=== PATIENT | female | born 1975 | race Caucasian/White ===

== ENCOUNTER → 2018-08-05 | Outpatient (CLI) | payer OTHER ==
[2018-08-05 15:00] LABS: Anion Gap 10 mmol/L; Blood Urea Nitrogen 14 mg/dL (7-17); Carbon Dioxide 25 mmol/L (22-30); Chloride 102 mmol/L (98-107); Glucose 194 mg/dL (74-99); Potassium 4.4 mmol/L (3.5-5.1); Sodium 137 mmol/L (137-145)
[2018-08-05 15:03] LABS: Basophils # (A) 0.1 k/uL (0-0.2); Basophils % (A) 1 %; Eosinophils # (A) 0.4 k/uL (0-0.7); Eosinophils % (A) 4 %; HCT 37.9 % (34.0-46.0); HGB 11.4 gm/dL (11.4-16.0); Lymphocytes # (A) 3.1 k/uL (1.0-4.8); Lymphocytes % (A) 33 %; MCH 23.6 pg (25.0-35.0); MCV 78.8 fL (80.0-100.0); Mean Platelet Volume 6.2; Monocytes # (A) 0.3 k/uL (0-1.0); Monocytes % (A) 4 %; Neutrophils # (A) 5.4 k/uL (1.3-7.7); Neutrophils % (A) 57 %; Platelet Count 378 k/uL (150-450); RDW 14.9 % (11.5-15.5); WBC 9.4 k/uL (3.8-10.6)
== END ==
LOC: LABPAT 13:56
PROVIDERS: ATTEND Obstetrics & Gynecology
DX: Z01.812 Encounter for preprocedural laboratory examination (principal); D25.9 Leiomyoma of uterus, unspecified; N93.8 Other specified abnormal uterine and vaginal bleeding; R10.84 Generalized abdominal pain
CPT/HCPCS: 36415; 80051; 82565; 82947; 84520; 85025; 87086

== ENCOUNTER 2018-08-11 05:48 | Inpatient (IN) | payer OTHER ==
[2018-07-30 15:21] VITALS: BMI 43.1
[~2018-08-11 05:48] MED LIST: DEXAMETHASONE SOD PHOSPHATE 10 MG/ML 1 ML VIAL IV ONE; LIDOCAINE 1% 20 ML VIAL (10MG/ML) FOR IV START INTRADERMA PRN; MIDAZOLAM 2 MG/2 ML VIAL IV PRN; ceFAZolin IN SWFI 2 GM/20 ML SYRINGE IVP ONE; fentaNYL (PF) 50 MCG/ML 2 ML AMP IV PRN
[2018-08-11 06:32] LABS: Glucose,Whole Blood 129 mg/dL (75-99)
[2018-08-11] MEDS: LACTATED RINGERS 1,000 ML IV SCH ×3 (06:34→20:06)
[2018-08-11] MEDS ORDERED: ONDANSETRON 4 MG/2 ML VIAL IVP ONE (06:34)
[2018-08-11] MEDS ORDERED: fentaNYL (PF) 50 MCG/ML 2 ML AMP IV ONE (06:52)
[2018-08-11] MEDS ORDERED: LIDOCAINE 1% INJ 10MG/ML (20 ML MDV) ONE (07:22)
[2018-08-11] MEDS ORDERED: diphenhydrAMINE 50 MG/ML 1 ML VIAL ONE (07:22)
[2018-08-11] MEDS ORDERED: NEOSTIGMINE 1 MG/ML 10 ML VIAL ONE (07:22)
[2018-08-11] MEDS ORDERED: ROCURONIUM BROMIDE 10 MG/ML 10 ML VIAL IV ONE (07:22)
[2018-08-11] MEDS ORDERED: GLYCOPYRROLATE 0.2 MG/ML 2 ML VIAL ONE (07:22)
[2018-08-11] MEDS ORDERED: SUCCINYLCHOLINE CHLORIDE 100 MG/5 ML SYR IV ONE (07:22)
[2018-08-11] MEDS ORDERED: PHENYLEPHRINE-0.9% NACL SYG 1 MG/10 ML SYRINGE ONE (07:22)
[2018-08-11] MEDS ORDERED: PROPOFOL 10 MG/ML 20 ML VIAL IV ONE (07:22)
[2018-08-11] MEDS ORDERED: MIDAZOLAM 2 MG/2 ML VIAL ONE (07:22)
[2018-08-11] MEDS ORDERED: fentaNYL (PF) 50 MCG/ML 2 ML AMP ONE (07:22)
[2018-08-11] MEDS ORDERED: ZOLPIDEM 5 MG TAB PO PRN (07:31)
[2018-08-11] MEDS ORDERED: ONDANSETRON 4 MG/2 ML VIAL IVP PRN (07:31)
[2018-08-11] MEDS ORDERED: Acetaminophen-Codeine 300-30mg TAB PO PRN (07:31)
[2018-08-11] MEDS ORDERED: METOCLOPRAMIDE 5 MG/ML 2 ML VIAL IVP PRN (07:31)
[2018-08-11] MEDS ORDERED: LACTATED RINGERS 1,000 ML IV ONE ×2 (08:25→10:19)
[2018-08-11] MEDS: KETOROLAC 30 MG/ML 1 ML VIAL IVP PRN ×3 (09:51→23:21)
--- NOTE | 2018-08-11 10:04 | P.OP ---
Date of Procedure: 08/11/18 Preoperative Diagnosis: #1. Symptomatic uterine fibroids #2. Pelvic pain Postoperative Diagnosis: Same plus #3. Large right adnexal solid mass with adhesions Procedure(s) Performed: 1. Exploratory laparotomy #2. Right salpingo-oophorectomy #3. Adhesio lysis #4. Total abdominal hysterectomy #5. Left salpingectomy Anesthesia: GETA Surgeon: Jignesh Gonsales Cleaner And Polisher #1: Makayla Vasquez Estimated Blood Loss (ml): 400 IV fluids (ml): 1,650 Urine output (ml): 300 Pathology: other (Right tube and ovary, uterus with cervix, left fallopian tube) Operative Findings: Preoperatively, the patient was thought to have 2 large uterine fibroids at the top of the uterus with an otherwise normal-appearing uterus by ultrasound. Intraoperatively, a large mass was encountered which was initially thought to include uterus but, upon further inspection was noted to be separate from the uterus with the uterus inferior to the mass. Once excised, it was clear that the mass represented the entire right tubo-ovarian complex and was sent for frozen section. Frozen section diagnosis suggested the possibility of pleomorphic leiomyoma versus possible sarcoma pending final pathologic stains. The uterus was otherwise normal with no evidence of fibroids though the bladder was densely adherent to the lower uterine segment from her previous section. There was evidence of endometriosis on the left ovary which causes the fallopian tube to be somewhat adherent to it was removed without difficulty. Clear urine was noted throughout the entire case including at the end. Description of Procedure: The patient was prepped and draped in usual fashion after general endotracheal anesthesia was admission by the anesthesiologist. A vertical midline incision was made from just below the umbilicus to just above the pubic symphysis and extended into the abdominal cavity without difficulty. Pelvic washings were taken and ultimately sent for pathological diagnoses. The mass was encountered within the incision and was delivered up and through the incision. There were multiple areas of what appeared to be peritoneal adhesions which were clamped with Yann [place] clamps, cut, and suture ligated with transfixion stitches of 0 Vicryl. The blood supply was ultimately identified, doubly clamped, cut, and suture-ligated with a transfixion stitch of 0 Vicryl followed by a free tie of 0 Vicryl. Once the mass had been excised, it was sent for frozen section diagnoses with the findings as noted above. It was at this time clearly identify that this was the right tubo-ovarian complex. The dissection was clearly carried out far away from the pelvic sidewall and away from the ureter. A Ayden O'García self-retaining retractor was placed and the bowel was packed from the wound. The uterus was then grasped on both sides with Tish clamps. The mass itself appeared to have been removed at the cornu on the right side. The round ligament on each side was identified, clamped with Ingrid-[place] clamps, cut, and suture-ligated with a stitch of 0 Vicryl. The bladder peritoneum was developed across the entire lower uterine segment. On the left side, window was made in the posterior leaf of the peritoneum to isolate the tubo-ovarian pedicle which was clamped with a Ingrid-[place] clamp, cut, and suture-ligated with a transfixion stitch of 0 Vicryl. The uterine vasculature was relatively skeletonized bilaterally and clamped with curved Ingrid- [place] clamps. Each was cut and suture-ligated with a transfixion stitch of 0 Vicryl. The densely adherent bladder could not be dissected bluntly and therefore was dissected sharply along the lower uterine segment at which time it became significantly free and was easily swept distally. Serial bites were taken with straight Ingrid-[place] clamps down the cardinal ligament towards the uterosacral ligament on each side. Each was cut and suture-ligated with a transfixion stitch of 0 Vicryl. At the level of the uterosacral ligaments, curved Ingrid-[place] clamps were placed across the uterosacral ligaments below the level of the cervix to enter the vagina. The specimen was then amputated from the patient and set aside for pathological diagnoses. Each clamp was suture-ligated with a transfixion stitch of 0 Vicryl. The intervening open vaginal cuff was closed with a running locking stitch of 0 Vicryl from margin to margin. Any small points of bleeding were made hemostatic with the Bovie. The decision was made to remove the left ovary in place despite the possibility of malignancy as there was also an equal possibility of a benign diagnosis at which time she would have been surgically menopausal. The fallopian tube was dissected both sharply and bluntly off of the ovary and ultimately the remaining pedicle clamped with a curved Ingrid-[place] clamp allowing the specimen removed from the patient and sent for pathological diagnoses along with the uterus. The pedicle was suture-ligated with a transfixion stitch of 0 Vicryl. Examination ovary demonstrated adequate blood flow and no evidence of bleeding from any of the dissection sites. Reexamination of the pelvis demonstrated similar findings. Irrigation was carried out and the pelvis again reinspected. No ongoing points of bleeding were noted. The instrumentation was then all removed and the packing removed. The parietal peritoneum was loosely reapproximated. There is no evidence of any pelvic adenopathy nor any extension from the mass with evidence of seeding. The fascia was closed with 2 running stitches of 0 Vicryl proceeding from the superior and inferior points to the midpoint. The subcutaneous tissues were irrigated, made hemostatic with the Bovie, and reapproximated with a running stitch of 30 plain catgut. The skin was reapproximated with a running subcuticular stitch of 4-0 Vicryl from margin to margin followed by full length half-inch Steri-Strips placed with Mastisol. Estimated blood loss for the case was approximately 400 mL. There were no complications. All sponge, instrument, and needle counts were correct. Clear urine was noted both at the beginning of the case and the end of the case. The patient tolerated the procedure well and proceeded to the recovery room in stable condition.
[2018-08-11] MEDS ORDERED: MORPHINE SULFATE 2 MG/ML SYRINGE IVP PRN (10:13)
[2018-08-11] MEDS ORDERED: NALBUPHINE 10 MG/ML (1 ML AMP) IV PRN (10:13)
[2018-08-11] MEDS ORDERED: NALOXONE 0.4 MG/ML 1 ML VIAL IV PRN (10:13)
[2018-08-11] MEDS: diphenhydrAMINE 50 MG/ML 1 ML VIAL IVP PRN ×2 (17:51→23:22)
[2018-08-11] MEDS: SENNOSIDES-DOCUSATE SODIUM 1 EACH TAB PO SCH ×2 (20:07→23:46)
[2018-08-12] MEDS: LACTATED RINGERS 1,000 ML IV SCH (03:30)
[2018-08-12 06:06] LABS: Basophils % (A) 0 %; Eosinophils # (A) 0.2 k/uL (0-0.7); Eosinophils % (A) 2 %; HCT 30.4 % (34.0-46.0); Hypochromasia Slight; Lymphocytes # (A) 2.8 k/uL (1.0-4.8); Lymphocytes % (A) 29 %; MCH 25.9 pg (25.0-35.0); MCHC 32.8 g/dL (31.0-37.0); Mean Platelet Volume 6.4; Monocytes # (A) 0.4 k/uL (0-1.0); Monocytes % (A) 4 %; Neutrophils # (A) 5.9 k/uL (1.3-7.7); Neutrophils % (A) 63 %; Platelet Count 272 k/uL (150-450); RBC 3.85 m/uL (3.80-5.40); RDW 14.7 % (11.5-15.5); WBC 9.4 k/uL (3.8-10.6)
--- NOTE | 2018-08-12 07:50 | P.PN ---
Subjective Progress Note Date: 08/12/18 Principal diagnosis: Large irregular right pelvic mass The patient reports that pain is currently reasonably well controlled. She has passed a small amount of flatus this morning though she does not feel hungry yet. She has been up and ambulating in the halls and denies any signs or symptoms of orthostasis. Objective - Vital Signs Vital signs: Vital Signs Temp 97.9 F 08/11/18 23:38 Pulse 74 08/11/18 23:38 Resp 14 08/12/18 06:00 BP 129/75 08/11/18 23:38 Pulse Ox 99 08/11/18 23:38 Intake & Output 08/11/18 08/12/18 08/12/18 18:59 06:59 18:59 Intake Total 1850 Output Total 1550 900 Balance 300 -900 Intake: IV 1850 Output: Urine 1150 900 Uretheral ([place]) 400 Estimated Blood Loss 400 Other: Voiding Method Indwelling Catheter # Voids 1 - Exam In general, this is a well-developed, moderately obese white female in no acute distress. Her abdomen is nondistended, soft, appropriately tender, and without masses. The incision is clean, dry, and intact. Her extremities are without any cyanosis, clubbing, or edema and are nontender to palpation bilaterally. - Labs CBC & Chem 7: 08/12/18 05:28 Labs: Abnormal Lab Results - Last 24 Hours (Table) 08/12/18 Range/Units 05:28 Hgb 10.0 L (11.4-16.0) gm/dL Hct 30.4 L (34.0-46.0) % MCV 79.0 L (80.0-100.0) fL Assessment and Plan (1) Pelvic pain Current Visit: Yes Status: Acute Code(s): R10.2 - PELVIC AND PERINEAL PAIN SNOMED Code(s): 20037983 (2) Pelvic mass Current Visit: Yes Status: Acute Code(s): R19.00 - INTRA-ABD AND PELVIC SWELLING, MASS AND LUMP, UNSP SITE SNOMED Code(s): 90464193 Plan: Continue routine postoperative care. I have discussed the findings of the surgery in detail with the patient and await final pathology for further di sposition. I will advance her diet to regular at lunch time and have strongly encouraged her to ambulate in the halls routinely. Additionally and abdominal binder has been ordered for her comfort. Possible discharge home tomorrow pending no complications.
[2018-08-12] MEDS: IBUPROFEN 600 MG TAB PO PRN ×3 (08:26→20:26)
--- NOTE | 2018-08-12 10:19 | P.PN ---
Progress Note - Text 08/12 709am 43-year-old female status post total abdominal hysterectomy by Dr. Gonsales. Postop day 1 patient has no pain, no complains of nausea vomiting or pruritus.
[2018-08-12] MEDS: Acetaminophen-Codeine 300-30mg TAB PO PRN ×2 (11:44→16:34)
[2018-08-12] MEDS: SENNOSIDES-DOCUSATE SODIUM 1 EACH TAB PO SCH ×2 (11:44→20:29)
[2018-08-12] MEDS: SIMETHICONE 80 MG CHEWABLE PO PRN ×2 (12:52→19:10)
[2018-08-13] MEDS: LACTATED RINGERS 1,000 ML IV SCH (00:21)
[2018-08-13] MEDS: SIMETHICONE 80 MG CHEWABLE PO PRN (01:10)
[2018-08-13] MEDS: Acetaminophen-Codeine 300-30mg TAB PO PRN ×2 (01:10→09:52)
[2018-08-13] MEDS: IBUPROFEN 600 MG TAB PO PRN (06:35)
[2018-08-13] MEDS: SENNOSIDES-DOCUSATE SODIUM 1 EACH TAB PO SCH (08:11)
[2018-08-13 08:52] VITALS: BP 139/96; PULSE 81; RESP 18; TEMP 97.8
--- NOTE | 2018-08-13 09:01 | P.DS ---
Providers Date of admission: 08/11/18 05:48 Expected date of discharge: 08/13/18 Attending physician: Jignesh Gonsales Primary care physician: Deja Bo - Discharge Diagnosis(es) (1) Pelvic pain Current Visit: Yes Status: Acute (2) Pelvic mass Current Visit: Yes Status: Acute Hospital Course: The patient is a 43-year-old multiparous woman who presented to the office with complaints of increasing pelvic and lower abdominal pain. She through both examination and ultrasound was thought to have a large fibroid uterus. Initial plans to attempt to do it laparoscopically failed for a number of reasons and the decision was made to proceed with an open case. She was taken the operating room where at the time of surgery, the mass was found to be very large, approximately 20-25 cm x 15-20 cm x 15-20 cm and very irregular in nature and arising from the right tubo-ovarian complex. It was removed and sent for frozen section which demonstrated what appeared to be a tumor of muscular origin consistent with either a very mitotically active leiomyoma or a possible leiomyosarcoma pending final pathology. She then underwent total abdominal hysterectomy and left salpingectomy. The left ovary was left in situ as the patient did not desire surgical menopause and, should malignancy be the final diagnosis, further staging would be necessary in either case. Her postoperative course was unremarkable with vital signs being stable and her temperature was afebrile throughout. She was tolerating a regular diet by the afternoon of postoperative day #1 and deemed stable for discharge by the morning of postoperative day #2. She was discharged home to follow-up in the office in 2 weeks' time for an incision check and 6 weeks time routinely. Discharge instructions included calling for any significantly increased bleeding, abdominal pain, GI or urinary concerns, incisional concerns, or anything else that concerned her. She is additionally instructed to have nothing in the vagina for at least 6 weeks time to include intercourse and to abstain from any heavy lifting over the same period of time. She was last instructed to do no driving until off of all pain medications or 2 weeks' time, whichever came first. She understood her instructions and agrees to follow up as noted above. Discharge medications included a prescription for Tylenol No. 3, 1-2 by mouth every 6 hours when necessary pain, #20 dispensed with no refills. She was otherwise to resume all of her normal home medications. Discharge hemoglobin and hematocrit were 10.0 and 30.4 respectively Procedures: #1. Exploratory laparotomy #2. Right salpingo-oophorectomy #3. Total ab dominal hysterectomy #4. Left salpingectomy #5. Intraoperative frozen section consultation Patient Condition at Discharge: Stable Plan - Discharge Summary Discharge Rx Participant: Yes New Discharge Prescriptions: No Action Levothyroxine Sodium [Synthroid] 200 mcg PO HS Ibuprofen [Motrin] 400 mg PO Q6HR PRN PRN Reason: Pain Acetaminophen Tab [Tylenol Tab] 500 - 1,000 mg PO Q6HR PRN PRN Reason: Pain Lisinopril 20 mg PO QAM Discharge Medication List Acetaminophen Tab [Tylenol Tab] 500 - 1,000 mg PO Q6HR PRN 08/01/18 [History] Ibuprofen [Motrin] 400 mg PO Q6HR PRN 08/01/18 [History] Levothyroxine Sodium [Synthroid] 200 mcg PO HS 08/01/18 [History] Lisinopril 20 mg PO QAM 08/01/18 [History] Follow up Appointment(s)/Referral(s): Jignesh Gonsales MD [STAFF PHYSICIAN] - 2 Weeks Discharge Disposition: HOME SELF-CARE
--- NOTE | 2018-08-22 06:15 | CDI ---
Documentation Clarification Form Date:08/22/18 From: Victorino Holder Phone: call to [phone] Admit Date: 08/11/2018 5:48:00 AM Patient Name: Rita Wilder Visit Number: [id number] Discharge Date: 08/13/2018 11:10:00 AM ATTENTION: The Clinical Documentation Specialists (CDI) and [facility] Coding Staff appreciate your assistance in clarifying documentation. Please respond to the clarification below the line at the bottom and electronically sign. The CDI & [facility] Coding staff will review the response and follow-up if needed. Please note: Queries are made part of the Legal Health Record. If you have any questions, please contact the author of this message via ITS. Dr. 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 Documentation states: Discharge summary states Leiomyoma, path results are pending. Patient history/risk factors: uterine fibroids ,Large adnexal solid mass. Treatment: patient underwent surgery WAYNE,oophorectomy. In your professional opinion, do you agree with the pathology report specifying Leiomyosarcoma ? Yes No Other (please specify) Unable to determine Yes MTDD
== END 2018-08-13 11:10 | disposition home or self-care (01) | DRG 738 ==
LOC: 2ORMAIN 05:48 → 4FBP 09:46
PROVIDERS: ADMIT Obstetrics & Gynecology; ATTEND Obstetrics & Gynecology
PROC: 0DNW0ZZ Release Peritoneum, Open Approach (ICD-10-PCS; principal; 2018-08-11 07:30)
PROC: 0UTC0ZZ Resection of Cervix, Open Approach (ICD-10-PCS; principal; 2018-08-11 07:30)
PROC: 0UT70ZZ Resection of Bilateral Fallopian Tubes, Open Approach (ICD-10-PCS; principal; 2018-08-11 07:30)
PROC: 0UT90ZZ Resection of Uterus, Open Approach (ICD-10-PCS; principal; 2018-08-11 07:30)
PROC: 0UB00ZZ Excision of Right Ovary, Open Approach (ICD-10-PCS; principal; 2018-08-11 07:30)
DX: C57.01 Malignant neoplasm of right fallopian tube (principal); I10 Essential (primary) hypertension; N83.11 Corpus luteum cyst of right ovary; N72 Inflammatory disease of cervix uteri; N80.2 Endometriosis of fallopian tube; N80.0 Endometriosis of uterus; E03.9 Hypothyroidism, unspecified; Z90.89 Acquired absence of other organs; Z98.891 History of uterine scar from previous surgery; Z79.890 Hormone replacement therapy; Z79.899 Other long term (current) drug therapy; Z91.041 Radiographic dye allergy status; Z88.8 Allergy status to other drugs, medicaments and biological substances; Z88.2 Allergy status to sulfonamides; Z82.49 Family history of ischemic heart disease and other diseases of the circulatory system; Z83.49 Family history of other endocrine, nutritional and metabolic diseases
CPT/HCPCS: 81025; 85025; 86850; 86900; 86901; 88108; 88305; 88307; 88309; 88331; 88341; 88342

== ENCOUNTER → 2018-10-01 | Outpatient (CLI) | payer OTHER ==
--- NOTE | 2018-10-01 10:10 | MM ---
Reason for exam: screening (asymptomatic). Baseline mammogram. History: Patient is postmenopausal and history of other cancer. Family history of breast cancer in aunt. Taking other hormone. Physical Findings: Nurse did not find any significant physical abnormalities on exam. MG Screening Mammo w CAD Bilateral CC and MLO view(s) were taken. There are scattered fibroglandular densities. There is a 1.4cm group of left retroareolar calcifications. No suspicious abnormality on the right. These results were verbally communicated with the patient and result sheet given to the patient on 10/01/18. ASSESSMENT: Incomplete: need additional imaging evaluation, BI-RAD 0 RECOMMENDATION: Special view mammogram of the left breast.
--- NOTE | 2018-10-01 10:36 | MM ---
Reason for exam: additional evaluation requested from abnormal screening. History: Patient is postmenopausal and history of other cancer. Family history of breast cancer in aunt. Taking other hormone. Physical Findings: Breast exam preformed at baseline screening. MG Work Up Mamm w CAD LT CC with magnification, LM with magnification, and LM view(s) were taken of the right breast. There are scattered fibroglandular densities. There is a 1.3cm group of lower outer quadrant left calcifications at anterior depth. These are pleomorphic and biopsy is recommended. These results were verbally communicated with the patient and result sheet given to the patient on 10/01/18. ASSESSMENT: Suspicious, BI-RAD 4 RECOMMENDATION: Stereotactic core biopsy of the left breast. Called Dr. Gonsales with mammographic findings and has scheduled an appointment for the patient for 10/01/18 at 1:[address] Montanez. Biopsy scheduled for 10/24/18 at 10:20. PRELIMINARY REPORT CALLED AND FAXED TO DR. MONTANEZ ON 10/01/18.
== END | disposition home or self-care (01) ==
LOC: RADMAMWWP 08:00
PROVIDERS: ATTEND Obstetrics & Gynecology
DX: Z12.31 Encounter for screening mammogram for malignant neoplasm of breast (principal); Z85.89 Personal history of malignant neoplasm of other organs and systems
CPT/HCPCS: 77065; 77067

== ENCOUNTER → 2018-11-25 | Day surgery (SDC) | payer OTHER ==
[2018-11-25 09:44] VITALS: RESP 18; BMI 40.4
[2018-11-25 12:57] VITALS: BP 125/88; PULSE 80; TEMP 98
--- NOTE | 2018-11-25 13:11 | MM ---
EXAMINATION TYPE: MG stereo VAD BX LT DATE OF EXAM: 11/25/2018 COMPARISON: Diagnostic mammogram dated 10/01/2018 CLINICAL HISTORY: Indeterminate left breast calcifications for which dedicated guided biopsy was anat mmended. TECHNIQUE: Stereotactic guided core biopsy of left breast. FINDINGS: The procedure of stereotactic guided core biopsy was explained to the patient. Benefits, a lternatives, and risks were discussed. An informed consent was then obtained. The safest pathway for biopsy was chosen to approximately 1.3 cm group of calcifications in the lower outer quadrant of the left breast at anterior depth. Safest pathway was lateral to medial approach. Coordinates were calculated. Subsequently 7 cc of lidocaine without epinephrine was utilized to anest hetize the skin and deeper subcutaneous soft tissues. The needle was advanced to the appropriate dept h. Prefire images were obtained ensuring appropriate location. Postfire injection of 5 cc of lidocain e with epinephrine was utilized to anesthetize the site of biopsy. Postfire images were obtained to e nsure no movement of the calcifications after instillation of additional anesthetic. A vacuum assiste d biopsy gun was used to obtain 8 core samples. The patient tolerated the procedure well without any immediate complication. The patient was kept in the radiology department for short stay after the procedure and then discharged home in stable condi tion. Targeted calcifications are identified in specimen mammogram. Post biopsy mammogram shows the biopsy marker to appear in satisfactory position relative to the targeted area of concern on the pre procedure images without migration. IMPRESSION: SUCCESSFUL, UNCOMPLICATED STEREOTACTIC GUIDED CORE BIOPSY OF A 1.3 CM GROUP OF CALCIFICATIONS IN THE LOWER QUADRANT OF THE LEFT BREAST AT ANTERIOR DEPTH, FULL PATHOLOGY RESULTS TO FOLLOW.
== END ==
LOC: RADMAMWWP 08:50
PROVIDERS: ATTEND Student in an Organized Health Care Education/Training Program
DX: D05.12 Intraductal carcinoma in situ of left breast (principal); R92.1 Mammographic calcification found on diagnostic imaging of breast; N64.89 Other specified disorders of breast; Z91.041 Radiographic dye allergy status; Z91.048 Other nonmedicinal substance allergy status
CPT/HCPCS: 88305; 88342; 88341; 19081; A4648; J2001

== ENCOUNTER 2019-01-19 16:28 | Observation (INO) | payer OTHER ==
[2019-01-19] MEDS ORDERED: SODIUM CHLORIDE 0.9% 1,000 ML IV STA ×2 (17:49)
[2019-01-19] MEDS ORDERED: PANTOPRAZOLE 40 MG/10 ML VIAL IVP STA (17:49)
[2019-01-19] MEDS ORDERED: ONDANSETRON 4 MG/2 ML VIAL IVP STA (17:49)
--- NOTE | 2019-01-19 18:48 | ED ---
General Adult HPI - General Source: patient, RN notes reviewed, old records reviewed Mode of arrival: ambulatory Limitations: no limitations <Maddy Stephenson - Last Filed: 01/19/19 21:24> <Masoud Auguste - Last Filed: 01/19/19 21:45> - General Chief complaint: Nausea/Vomiting/Diarrhea Stated complaint: vomiting/weakness Time Seen by Provider: 01/19/19 17:23 - History of Present Illness Initial comments: 43-year-old female presents today for evaluation for dizziness, as well as dehydration. She reports that she last received chemo last Saturday. She reports onset time she's been having increased nausea and inability to eat anything or drink anything for one week. Patient states that she has some drainage coming out of her nose towards her throat and seems to cause some stomach upset. Patient has had an episode of diarrhea yesterday. Her oncologist is Dr. Booker. 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 She had a hysterectomy. She is undergoing chemo treatments. She also has history of breast cancer at this time. Patient reports she did receive Neulasta shot approximatelly 6 days ago. (Maddy Stephenson) - Related Data Home Medications Medication Instructions Recorded Confirmed Levothyroxine Sodium [Synthroid] 200 mcg PO HS 08/01/18 01/19/19 Lisinopril 20 mg PO QAM 08/01/18 01/19/19 DOCEtaxel [Taxotere] 160 mg IV Q14D 11/12/18 01/19/19 Dexamethasone 4 mg PO WEEKLY 11/12/18 01/19/19 Gemcitabine HCl [Gemzar] 1,900 mg IV Q21D 11/12/18 01/19/19 Prochlorperazine [Compazine] 5 mg PO Q6H PRN 11/12/18 01/19/19 Allergies Allergy/AdvReac Type Severity Reaction Status Date / Time Iodinated Contrast Media Allergy Anaphylaxis Verified 01/19/19 17:20 [Iodinated Contrast- Oral and IV Dye] prednisone Allergy Rash/Hives Verified 01/19/19 17:23 ranitidine [From Zantac] Allergy Anaphylaxis Verified 01/19/19 17:20 Sulfa (Sulfonamide Allergy Anaphylaxis Verified 01/19/19 17:20 Antibiotics) Review of Systems ROS Other: All systems not noted in ROS Statement are negative. <Maddy Stephenson - Last Filed: 01/19/19 21:24> ROS Other: All systems not noted in ROS Statement are negative. <Masoud Auguste - Last Filed: 01/19/19 21:45> ROS Statement: Those systems with pertinent positive or pertinent negative responses have been documented in the HPI. Past Medical History Past Medical History: Cancer, Hypertension, Thyroid Disorder Additional Past Medical History / Comment(s): LEOMYOSARCOMA fallopian tube dx July 2018-current chemo treatments. Stapes implant-for hearing, inner ear, breast ca History of Any Multi-Drug Resistant Organisms: None Reported Past Surgical History: Adenoidectomy, Section, Ear Surgery, Tonsillectomy Additional Past Surgical History / Comment(s): thyrodectomy,prior thyroid surgery Past Anesthesia/Blood Transfusion Reactions: Postoperative Nausea & Vomiting (PONV) Additional Past Anesthesia/Blood Transfusion Reaction / Comment(s): no hx blood transfusion Past Psychological History: No Psychological Hx Reported Smoking Status: Never smoker Past Alcohol Use History: None Reported Past Drug Use History: None Reported - Past Family History Father Family Medical History: Myocardial Infarction (ID) Additional Family Medical History / Comment(s): at age 45 <Maddy Stephenson - Last Filed: 01/19/19 21:24> General Exam Limitations: no limitations General appearance: alert, in no apparent distress Head exam: Present: atraumatic, normocephalic, normal inspection Eye exam: Present: normal appearance, PERRL, EOMI. Absent: scleral icterus, conjunctival injection, periorbital swelling ENT exam: Present: normal exam, mucous membranes moist Neck exam: Present: normal inspection. Absent: tenderness, meningismus, lymphadenopathy Respiratory exam: Present: normal lung sounds bilaterally, other (port in R chest wall). Absent: respiratory distress, wheezes, rales, rhonchi, stridor Cardiovascular Exam: Present: regular rate, normal rhythm, normal heart sounds. Absent: systolic murmur, diastolic murmur, rubs, gallop, clicks GI/Abdominal exam: Present: soft, tenderness (minimal epigastric), normal bowel sounds. Absent: distended, guarding, rebound, rigid Extremities exam: Present: normal inspection, full ROM, normal capillary refill. Absent: tenderness, pedal edema, joint swelling, calf tenderness Back exam: Present: normal inspection Neurological exam: Present: alert, oriented X3, CN II-XII intact Psychiatric exam: Present: normal affect, normal mood Skin exam: Present: warm, dry, intact, normal color. Absent: rash <Maddy Stephenson - Last Filed: 01/19/19 21:24> - General Exam Comments Initial Comments: Generally weak appearing 43-year-old female. (RosmeryrickyMaddy) Course Vital Signs 01/19/19 01/19/19 16:37 19:00 Temperature 98.7 F Pulse Rate 93 93 Respiratory 18 20 Rate Blood Pressure 111/82 114/71 O2 Sat by Pulse 100 99 Oximetry EKG Findings - EKG Comments: EKG Findings:: EKG shows sinus tachycardia cannot really anterior infarct age undetermined. Ventricular rate of 10 2 bpm period. It was 136 ms. Care instructions 86 ms. QT QTc is 354/461 ms. <Maddy Stephenson - Last Filed: 01/19/19 21:24> Medical Decision Making - Lab Data Result diagrams: 01/19/19 19:20 01/19/19 19:20 - Radiology Data Radiology results: report reviewed <Maddy Stephenson - Last Filed: 01/19/19 21:24> - Lab Data Result diagrams: 01/19/19 19:20 01/19/19 19:20 <Masoud Auguste - Last Filed: 01/19/19 21:45> - Medical Decision Making 43-year-old female with a history of leiomyosarcoma of the fallopian tube, as well as breast cancer. She is on chemotherapy and last treatment was on Saturday. She did receive Neulasta injection. She's had persistent nausea and vomiting since that time. She landed some nasal congestion settling in down her throat into her stomach. She had no vomiting in ER pain. She disappears significant only dehydrated. Lab work was reviewed. Evidence of leukocytosis of 45,000. She is afebrile at this time. I did obtain blood cultures. Chest x-ray was negative for any acute process. KUB is normal. Patient's case discussed with Dr. Auguste. Patient will be admitted for dehydration. (Maddy Stephenson) I spoke with Dr. Ashley Buenrostro and he was not concerned about the 45,000 white count because he believes it was secondary to Neupogen (Masoud Auguste) - Lab Data Lab Results 01/19/19 01/19/19 01/19/19 Range/Units 19:20 19:20 19:20 WBC 43.8 H (3.8-10.6) k/uL RBC 3.55 L (3.80-5.40) m/uL Hgb 10.0 L (11.4-16.0) gm/dL Hct 29.3 L (34.0-46.0) % MCV 82.6 (80.0-100.0) fL MCH 28.2 (25.0-35.0) pg MCHC 34.2 (31.0-37.0) g/dL RDW 21.9 H (11.5-15.5) % Plt Count 109 L D (150-450) k/uL Neutrophils % (Manual) 72 % Band Neutrophils % 15 % Lymphocytes % (Manual) 9 % Monocytes % (Manual) 1 % Metamyelocytes % 4 % Myelocytes % 1 % Neutrophils # (Manual) 38.10 H (1.3-7.7) k/uL Lymphocytes # (Manual) 3.94 (1.0-4.8) k/uL Monocytes # (Manual) 0.44 (0-1.0) k/uL Metamyelocytes # (Man) 1.75 H (0) k/uL Myelocytes # (Manual) 0.44 H (0) k/uL Nucleated RBCs 4 H (0-0) /100 WBC Manual Slide Review Performed Polychromasia Present Poikilocytosis (manual Present Anisocytosis Moderate Microcytosis Slight Sodium 136 L (137-145) mmol/L Potassium 3.5 (3.5-5.1) mmol/L Chloride 104 (98-107) mmol/L Carbon Dioxide 19 L (22-30) mmol/L Anion Gap 13 mmol/L BUN 10 (7-17) mg/dL Creatinine 0.99 (0.52-1.04) mg/dL Est GFR (CKD-EPI)AfAm 80 (>60 ml/min/1.73 sqM) Est GFR (CKD-EPI)NonAf 70 (>60 ml/min/1.73 sqM) Glucose 132 H (74-99) mg/dL Plasma Lactic Acid Bry 1.4 (0.7-2.0) mmol/L Calcium 9.3 (8.4-10.2) mg/dL Total Bilirubin 0.8 (0.2-1.3) mg/dL AST 51 H (14-36) U/L ALT 73 H (9-52) U/L Alkaline Phosphatase 151 H (38-126) U/L Total Protein 6.2 L (6.3-8.2) g/dL Albumin 3.6 (3.5-5.0) g/dL Amylase 37 (30-110) U/L Lipase 43 (23-300) U/L - Radiology Data Normal chest x-ray. KUB is normal. (Maddy Stephenson) Disposition Is patient prescribed a controlled substance at d/c from ED?: No Time of Disposition: 21:25 <Maddy Stephenson - Last Filed: 01/19/19 21:24> <Masoud Auguste - Last Filed: 01/19/19 21:45> Clinical Impression: Dehydration, Nausea & vomiting, Leukocytosis Disposition: ADMITTED IP TO THIS HOSP Condition: Stable Referrals: Deja Bo MD [Primary Care Provider] - 1-2 days
--- NOTE | 2019-01-19 19:38 | XR ---
EXAMINATION TYPE: XR KUB DATE OF EXAM: 01/19/2019 COMPARISON: NONE HISTORY: Weakness TECHNIQUE: 2 views upright FINDINGS: There is no sign of intestinal obstruction or pneumoperitoneum. Fecal pattern is normal. Th ere are no pathologic calcifications. There is no sign of a mass. IMPRESSION: Nonacute abdomen.
--- NOTE | 2019-01-19 19:39 | XR ---
EXAMINATION TYPE: XR chest 2V DATE OF EXAM: 01/19/2019 COMPARISON: NONE HISTORY: Weakness dizziness TECHNIQUE: Frontal and lateral views of the chest are obtained. FINDINGS: Heart and mediastinum are normal. Lungs are clear. Diaphragm is normal. There is right raya tral venous catheter with tip in the superior vena cava. There is no pleural effusion. Bony thorax ap pears normal. IMPRESSION: Normal chest
[2019-01-19 19:50] LABS: Albumin 3.6 g/dL (3.5-5.0); Calcium 9.3 mg/dL (8.4-10.2); Potassium 3.5 mmol/L (3.5-5.1); Total Bilirubin 0.8 mg/dL (0.2-1.3); Total Protein 6.2 g/dL (6.3-8.2)
[2019-01-19 20:16] LABS: Anisocytosis Moderate; HCT 29.3 % (34.0-46.0); MCH 28.2 pg (25.0-35.0); MCHC 34.2 g/dL (31.0-37.0); MCV 82.6 fL (80.0-100.0); Mean Platelet Volume 6.5; Microcytosis Slight; RBC 3.55 m/uL (3.80-5.40); RDW 21.9 % (11.5-15.5)
[2019-01-19 20:17] LABS: Platelet Count 109 k/uL (150-450)
[2019-01-19 20:43] LABS: Band Neutrophils % 15 %; Lymphocytes # (M) 3.94 k/uL (1.0-4.8); Metamyelocytes # (M) 1.75 k/uL (0); Metamyelocytes % 4 %; Monocytes # (M) 0.44 k/uL (0-1.0); Myelocytes # (M) 0.44 k/uL (0); Myelocytes % 1 %; Neutrophils % (M) 72 %; Nucleated Red Blood Cells 4 /100 WBC (0-0); Total Cells Counted 200; WBC 43.8 k/uL (3.8-10.6)
[2019-01-19 20:44] LABS: Poikilocytosis (M) Present; Polychromasia Present
[2019-01-19] MEDS ORDERED: SODIUM CHLORIDE 0.9% 1,000 ML IV ONE (20:52)
[2019-01-19] MEDS ORDERED: ACETAMINOPHEN TAB 325 MG TAB PO PRN (21:26)
[2019-01-19] MEDS ORDERED: KETOROLAC 30 MG/ML 1 ML VIAL IVP PRN (21:26)
[2019-01-19] MEDS ORDERED: NALOXONE 0.4 MG/ML 1 ML VIAL IV PRN (21:26)
[2019-01-19] MEDS ORDERED: MORPHINE SULFATE 4 MG/ML SYRINGE IV PRN (21:26)
[2019-01-19] MEDS ORDERED: SODIUM CHLORIDE 0.9% 1,000 ML IV SCH (21:30)
[2019-01-19 22:00] LABS: Appearance,Urine Cloudy (Clear); Bacteria,Urine Rare /hpf; Bilirubin,Urine 1+ (Negative); Blood,Urine Negative (Negative); Color,Urine Yellow; Glucose,Urine (UA) Negative (Negative); Hyaline Casts,Urine 4 /lpf (0-2); Ketones,Urine 1+ (Negative); Leukocyte Esterase,Urine Trace (Negative); Mucus,Urine Many /hpf; Nitrite,Urine Negative (Negative); Protein,Urine 1+ (Negative); RBC,Urine 3 /hpf (0-5); Squamous Epithelial Cell,Urine 3 /hpf (0-4); WBC,Urine 12 /hpf (0-5)
[2019-01-19 23:37] VITALS: BMI 40.4
--- NOTE | 2019-01-20 01:35 | P.HPIM ---
History of Present Illness H&P Date: 01/19/19 Chief Complaint: Nausea and vomiting 43-year-old female with history of leiomyosarcoma status post surgery currently on chemotherapy Patient presented with couple day history of repeated nausea and vomiting. Patient reports that normal reaction to receiving chemotherapy she would feel nauseous for few days her last chemotherapy dose was one week ago on Saturday however since then she's been having vomiting off-and-on but over the past 2 days she couldn't keep anything down and was having repeated vomiting of stomach contents nonbloody nonbilious she had also 5 episodes of diarrhea over the past 5 days she started feeling very weak and tired couldn't eat anything or drink and decided to come to the hospital. She denies any fevers denies any dysuria however her urine output has decreased she denies any chest pain or trouble breathing denies any coughing denies any rashes he denies any sick contact in eyes and recent hospitalization. She does report some nasal drainage which is normal reaction to receiving chemotherapy denies any ear pain runny nose or sore throat. However she reports some throat irritation from repeated vomiting. In the ED she was found to have elevated white count hemoglobin of 10 and platelets of 109 however this was thought to be due to Neulasta that she received a week ago there was no focus of infection to be identified at this ti me blood cultures were taken patient will be monitored closely for any signs of infection. Review of Systems Pertinent positives as noted in HPI. All other systems were reviewed and are negative Past Medical History Past Medical History: Cancer, Hypertension, Thyroid Disorder Additional Past Medical History / Comment(s): LEOMYOSARCOMA fallopian tube dx July 2018-current chemo treatments cycle 5 is done will start cycle 6 next week on saturday. Stapes implant-for hearing right ear, inner ear, left breast ca, hearing aid left ear [place],. Chemo is supposed to go to cycle 6 then once that is done she is done with chemo. february 2019 supposed to have left breast lumpectomy per oncologist states stage 0, and is supposed to start radiation post lumpectomy. Also supposed to remove left over part of cervix and right ovary. All of this in february. History of Any Multi-Drug Resistant Organisms: None Reported Past Surgical History: Adenoidectomy, Section, Ear Surgery, Tonsillectomy Additional Past Surgical History / Comment(s): thyrodectomy,prior thyroid surgery Past Anesthesia/Blood Transfusion Reactions: Postoperative Nausea & Vomiting (PONV) Additional Past Anesthesia/Blood Transfusion Reaction / Comment(s): no hx blood transfusion Past Psychological History: No Psychological Hx Reported Smoking Status: Never smoker Past Alcohol Use History: None Reported Past Drug Use History: None Reported - Past Family History Father Family Medical History: Myocardial Infarction (ME) Additional Family Medical History / Comment(s): at age 45 Medications and Allergies Home Medications Medication Instructions Recorded Confirmed Type Levothyroxine Sodium [Synthroid] 200 mcg PO HS 08/01/18 01/19/19 History Lisinopril 20 mg PO QAM 08/01/18 01/19/19 History DOCEtaxel [Taxotere] 160 mg IV Q14D 11/12/18 01/19/19 History Dexamethasone 4 mg PO WEEKLY 11/12/18 01/19/19 History Gemcitabine HCl [Gemzar] 1,900 mg IV Q21D 11/12/18 01/19/19 History Prochlorperazine [Compazine] 5 mg PO Q6H PRN 11/12/18 01/19/19 History Allergies Allergy/AdvReac Type Severity Reaction Status Date / Time adhesive Allergy Rash/Hives Verified 01/19/19 23:05 Iodinated Contrast Media Allergy Anaphylaxis Verified 01/19/19 23:05 [Iodinated Contrast- Oral and IV Dye] prednisone Allergy Rash/Hives Verified 01/19/19 23:05 ranitidine [From Zantac] Allergy Anaphylaxis Verified 01/19/19 23:05 Sulfa (Sulfonamide Allergy Anaphylaxis Verified 01/19/19 23:05 Antibiotics) Physical Exam Vitals: Vital Signs Temp Pulse Pulse Resp BP BP Pulse Ox 01/19/19 23:00 97.7 F 106 H 16 127/84 100 01/19/19 22:00 98.1 F 90 20 115/70 97 01/19/19 21:00 98.2 F 89 18 114/75 97 01/19/19 19:00 93 20 114/71 99 01/19/19 16:37 98.7 F 93 18 111/82 100 Intake and Output 01/19/19 01/19/19 01/20/19 14:59 22:59 06:59 Other: Weight 110.223 kg Constitutional: No acute distress, conversant, pleasant Eyes: Anicteric sclerae, moist conjunctiva, no lid-lag Pupils equal round reactive to light ENMT: NC/AT Oropharynx clear, no erythema, exudates Neck: Supple, FROM, no masses, or JVD No carotid bruits No thyromegaly Lungs: Clear to auscultation Clear to percussion Normal respiratory effort, no accessory muscle use Cardiovascular: Heart regular in rate and rhythm, No murmurs, gallops, or rubs No peripheral edema Abdominal: Soft Nontender, no guarding, rebound or rigidity Abdomen moving with respiration Normoactive bowel sounds No hepatomegaly, No splenomegaly No palpable mass No abdominal wall hernia noted Skin: Right anterior chest Mediport, no tenderness to palpation there is small area of surrounding erythema no induration no drainage Normal temperature, tone, texture, turgor No induration No subcutaneous nodules No rash, lesions No ulcers Extremities: No digital cyanosis No clubbing Pedal pulses intact and symmetrical Radial pulses intact and symmetrical No calf tenderness Psychiatric: Alert and oriented to person, place and time Appropriate affect fair judgment Neuro Muscles Strength 5/5 in all 4 extremities Sensation to light touch grossly present throughout Cranial nerves II-XII grossly intact No focal sensory deficits Lymphatics: no palpable cervical or supraclavicular , or inguinal lymph nodes Results CBC & Chem 7: 01/19/19 19:20 01/19/19 19:20 Labs: Abnormal Lab Results - Last 24 Hours (Table) 01/19/19 01/19/19 01/19/19 Range/Units 19:20 19:20 21:40 WBC 43.8 H (3.8-10.6) k/uL RBC 3.55 L (3.80-5.40) m/uL Hgb 10.0 L (11.4-16.0) gm/dL Hct 29.3 L (34.0-46.0) % RDW 21.9 H (11.5-15.5) % Plt Count 109 L D (150-450) k/uL Neutrophils # (Manual) 38.10 H (1.3-7.7) k/uL Metamyelocytes # (Man) 1.75 H (0) k/uL Myelocytes # (Manual) 0.44 H (0) k/uL Nucleated RBCs 4 H (0-0) /100 WBC Sodium 136 L (137-145) mmol/L Carbon Dioxide 19 L (22-30) mmol/L Glucose 132 H (74-99) mg/dL AST 51 H (14-36) U/L ALT 73 H (9-52) U/L Alkaline Phosphatase 151 H (38-126) U/L Total Protein 6.2 L (6.3-8.2) g/dL Urine Appearance Cloudy H (Clear) Urine Protein 1+ H (Negative) Urine Ketones 1+ H (Negative) Urine Bilirubin 1+ H (Negative) Ur Leukocyte Esterase Trace H (Negative) Urine WBC 12 H (0-5) /hpf Urine Bacteria Rare H (None) /hpf Hyaline Casts 4 H (0-2) /lpf Urine Mucus Many H (None) /hpf Thrombosis Risk Factor Assmnt - Choose All That Apply Any of the Below Risk Factors Present?: Yes Each Factor Represents 1 point: Age 41-60 years, Obesity (BMI >25) Other Risk Factors: Yes Each Risk Factor Represents 2 Points: Malignancy Each Risk Factor Represents 3 Points: Positive Lupus Anticoagulant Thrombosis Risk Factor Assessment Total Risk Factor Score: 7 Thrombosis Risk Factor Assessment Level: High Risk Assessment and Plan Assessment: 43-year-old female with history of leiomyosarcoma of the fallopian tubes status post surgical removal currently on chemotherapy admitted as inpatient with anticipated length of stay more than 2 midnight for intractable nausea vomiting dehydration elevated white count rule out infectious process Plan: Intractable nausea vomiting Dehydration Metabolic acidosis Symptomatic control Aggressive IV fluid hydration Gradually advanced by mouth intake as tolerated Leukocytosis currently nonidentified focus of infection this could be reactive to Neulasta * Follow vital signs closely Follow-up blood cultures There is area of erythema without induration around right anterior chest MediPort, which is most likely due to skin reaction to tape Monitor closely Follow-up morning labs Slightly elevated LFTs Continue to monitor Chronic conditions Hypothyroid continue home meds Hypertension continue home meds Breast cancer plans for lumpectomy Anemia and thrombocytopenia Most likely secondary to chronic disease underlying cancer and chemotherapy Follow-up labs Full code DVT prophylaxis: Heparin subcu 3 times a day Discussed with: Patient, ER, RN Anticipated length of stay more than [address]: Home A total of 65 minutes was spent on the care of this complex patient more than 50% of the time was spent in counseling and care coordination.
[2019-01-20] MEDS: SODIUM CHLORIDE 0.9% 1,000 ML IV SCH ×5 (02:33→22:49)
[2019-01-20] MEDS ORDERED: CALCIUM CARBONATE 500 MG CHEWABLE PO PRN (03:11)
[2019-01-20 07:44] LABS: Albumin 2.6 g/dL (3.5-5.0); Calcium 7.9 mg/dL (8.4-10.2); Potassium 3.6 mmol/L (3.5-5.1); Total Bilirubin 0.5 mg/dL (0.2-1.3)
[2019-01-20] MEDS: ONDANSETRON 4 MG/2 ML VIAL IVP PRN (07:46)
[2019-01-20] MEDS: LISINOPRIL 20 MG TAB PO SCH (07:47)
[2019-01-20] MEDS: HEPARIN SODIUM,PORCINE 5,000 UNIT/ML 1 ML VIAL SQ SCH ×3 (07:47→22:50)
[2019-01-20] MEDS: PANTOPRAZOLE 40 MG TABLET PO SCH ×2 (07:47→18:01)
[2019-01-20 07:55] LABS: Anisocytosis Moderate; HCT 25.5 % (34.0-46.0); Hypochromasia Slight; MCH 27.6 pg (25.0-35.0); MCHC 32.5 g/dL (31.0-37.0); MCV 85.1 fL (80.0-100.0); Mean Platelet Volume 7.2; Microcytosis Slight; RDW 22.7 % (11.5-15.5)
[2019-01-20 08:02] LABS: HGB 8.3 gm/dL (11.4-16.0)
[2019-01-20 10:51] LABS: Band Neutrophils % 6 %; Basophils # (M) 0.34 k/uL (0-0.2); Eosinophils # (M) 0.34 k/uL (0-0.7); Metamyelocytes % 5 %; Myelocytes % 4 %; Neutrophils % (M) 67 %; Nucleated Red Blood Cells 1 /100 WBC (0-0); Total Cells Counted 200
[2019-01-20 10:52] LABS: Lymphocytes # (M) 3.73 k/uL (1.0-4.8); Monocytes # (M) 3.05 k/uL (0-1.0); Myelocytes # (M) 1.36 k/uL (0); WBC 33.9 k/uL (3.8-10.6)
[2019-01-20] MEDS: IBUPROFEN 400 MG TAB PO PRN (10:57)
[2019-01-20 11:00] LABS: Platelet Count 79 k/uL (150-450); Polychromasia Present
[2019-01-20] MEDS ORDERED: SIMETHICONE 80 MG CHEWABLE PO PRN (14:09)
[2019-01-20] MEDS ORDERED: DICYCLOMINE 10 MG/ML 2 ML AMP IM SCH (14:15)
--- NOTE | 2019-01-20 15:48 | P.CONS ---
History of Present Illness - Reason for Consult Consult date: 01/20/19 - History of Present Illness Mrs. Wilder is a pleasant white female, with minor medical problems, who was noted to have some abnormal findings on routine pelvic exam with her wrapper caser in 07/08. The patient had been having increased bleeding with her periods, associated with pain, which is new for her, since 03/09. She was also having low back pain in the midline. On exam she was noted to have bulky uterus, with possible fibroids. The patient initially had surgical exploration with Dr. Gonsales, but was found to have a large mass associated with the rt fallopian uterine junction which was felt to be suspicious for malignancy. She was therefore referred to [facility], Dr. Calvo at [facility]. She underwent surgery with total abdominal hysterectomy, left salpingectomy, right oophorectomy and salpingectomy with sampling of pelvic and peritoneal fluid. 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 This was classified as a pathologic T2 a. She had a CT of the chest abdomen and pelvis on 09/08/18 revealing no evidence of metastatic disease. Small, nonspecific subcentimeter pulmonary nodules were noted. The patient's case was discussed in the [facility], and adjuvant chemotherapy with Gemzar and Taxotere was recommended. She was therefore referred here for the same, as she wanted to have treatment locally. She denied any prior history of malignancy. She started cycle 1 with gemcitabine and Taxotere on 10/13/18. She is s/p C4 She had left breast biopsy of microcalcifications on 11/25/18, after her mammogram in 10/08 ( her 1st screening). This revealed DCIS. Definitive management is on hold till chemo is completed. he pt tolerated C 4 mostly stable side effects. Her CBC shows a Hgb of 10, plt 151, and WBC 18.7 - CHeck labs She now presents for delayed nausea and vomiting post treatment, unable to keep food or water down, also associated diarrhea. She also appears to have increased drainage which is also common side effect with cancer and/or possible underlying sinus issue contributing. Review of Systems A 14 point review of systems was assessed and completed and are all negative except for HPI Past Medical History Past Medical History: Cancer, Hypertension, Thyroid Disorder Additional Past Medical History / Comment(s): LEOMYOSARCOMA fallopian tube dx July 2018-current chemo treatments cycle 5 is done will start cycle 6 next week on saturday. Stapes implant-for hearing right ear, inner ear, left breast ca, hearing aid left ear [place] [employer] [place],. Chemo is supposed to go to cycle 6 then once that is done she is done with chemo. february 2019 supposed to have left breast lumpectomy per oncologist states stage 0, and is supposed to start radiation post lumpectomy. Also supposed to remove left over part of cervix and right ovary. All of this in february. History of Any Multi-Drug Resistant Organisms: None Reported Past Surgical History: Adenoidectomy, Section, Ear Surgery, Tonsillectomy Additional Past Surgical History / Comment(s): thyrodectomy,prior thyroid surgery Past Anesthesia/Blood Transfusion Reactions: Postoperative Nausea & Vomiting (PONV) Additional Past Anesthesia/Blood Transfusion Reaction / Comm: no hx blood transfusion Past Psychological History: No Psychological Hx Reported Smoking Status: Never smoker Past Alcohol Use History: None Reported Past Drug Use History: None Reported - Past Family History Father Family Medical History: Myocardial Infarction ([place]) Additional Family Medical History / Comment(s): at age 45 Medications and Allergies Home Medications Medication Instructions Recorded Confirmed Type Levothyroxine Sodium [Synthroid] 200 mcg PO HS 08/01/18 01/19/19 History Lisinopril 20 mg PO QAM 08/01/18 01/19/19 History DOCEtaxel [Taxotere] 160 mg IV Q14D 11/12/18 01/19/19 History Dexamethasone 4 mg PO WEEKLY 11/12/18 01/19/19 History Gemcitabine HCl [Gemzar] 1,900 mg IV Q21D 11/12/18 01/19/19 History Prochlorperazine [Compazine] 5 mg PO Q6H PRN 11/12/18 01/19/19 History Allergies Allergy/AdvReac Type Severity Reaction Status Date / Time adhesive Allergy Rash/Hives Verified 01/19/19 23:05 Iodinated Contrast Media Allergy Anaphylaxis Verified 01/19/19 23:05 [Iodinated Contrast- Oral and IV Dye] prednisone Allergy Rash/Hives Verified 01/19/19 23:05 ranitidine [From Zantac] Allergy Anaphylaxis Verified 01/19/19 23:05 Sulfa (Sulfonamide Allergy Anaphylaxis Verified 01/19/19 23:05 Antibiotics) Physical Exam Vitals: Vital Signs Temp Pulse Pulse Resp BP BP Pulse Ox 01/20/19 12:29 97.8 F 81 17 97/56 98 01/20/19 05:29 98.2 F 89 16 102/54 99 01/19/19 23:00 97.7 F 106 H 16 127/84 100 01/19/19 22:00 98.1 F 90 20 115/70 97 01/19/19 21:00 98.2 F 89 18 114/75 97 01/19/19 19:00 93 20 114/71 99 01/19/19 16:37 98.7 F 93 18 111/82 100 Intake and Output 01/20/19 01/20/19 01/20/19 06:59 14:59 22:59 Intake Total 850 1200 Balance 850 1200 Intake: Intake, IV Titration 850 1200 Amount Sodium Chloride 0.9% 1, 250 000 ml @ 125 mls/hr IV . Q8H [facility] Rx#:[id number] Sodium Chloride 0.9% 1, 600 1200 000 ml @ 150 mls/hr IV . Q6H40M [facility] Rx#:[id number] Other: Voiding Method Toilet Toilet # Voids 1 Weight 110.223 kg Gen: Alert and Oriented, NAD Head: NCNT Neck Supple Heart RRR Lungs No increased effort CTA B Abdomen: S/ND/NT Ext: No Rash, No Edema, Equal Strength Psych: Calm and Coroperative Neuro: No Focal Deficits Noted. Results CBC & Chem 7: 01/20/19 07:11 01/20/19 07:11 Labs: Abnormal Lab Results - Last 24 Hours (Table) 01/19/19 01/19/19 01/19/19 Range/Units 19:20 19:20 21:40 WBC 43.8 H (3.8-10.6) k/uL RBC 3.55 L (3.80-5.40) m/uL Hgb 10.0 L (11.4-16.0) gm/dL Hct 29.3 L (34.0-46.0) % RDW 21.9 H (11.5-15.5) % Plt Count 109 L D (150-450) k/uL Neutrophils # (Manual) 38.10 H (1.3-7.7) k/uL Monocytes # (Manual) (0-1.0) k/uL Basophils # (Manual) (0-0.2) k/uL Metamyelocytes # (Man) 1.75 H (0) k/uL Myelocytes # (Manual) 0.44 H (0) k/uL Nucleated RBCs 4 H (0-0) /100 WBC Sodium 136 L (137-145) mmol/L Chloride (98-107) mmol/L Carbon Dioxide 19 L (22-30) mmol/L Creatinine (0.52-1.04) mg/dL Glucose 132 H (74-99) mg/dL Calcium (8.4-10.2) mg/dL AST 51 H (14-36) U/L ALT 73 H (9-52) U/L Alkaline Phosphatase 151 H (38-126) U/L Total Protein 6.2 L (6.3-8.2) g/dL Albumin (3.5-5.0) g/dL Urine Appearance Cloudy H (Clear) Urine Protein 1+ H (Negative) Urine Ketones 1+ H (Negative) Urine Bilirubin 1+ H (Negative) Ur Leukocyte Esterase Trace H (Negative) Urine WBC 12 H (0-5) /hpf Urine Bacteria Rare H (None) /hpf Hyaline Casts 4 H (0-2) /lpf Urine Mucus Many H (None) /hpf 01/20/19 01/20/19 Range/Units 07:11 07:11 WBC 33.9 H (3.8-10.6) k/uL RBC 3.00 L (3.80-5.40) m/uL Hgb 8.3 L D (11.4-16.0) gm/dL Hct 25.5 L (34.0-46.0) % RDW 22.7 H (11.5-15.5) % Plt Count 79 L (150-450) k/uL Neutrophils # (Manual) 24.70 H (1.3-7.7) k/uL Monocytes # (Manual) 3.05 H (0-1.0) k/uL Basophils # (Manual) 0.34 H (0-0.2) k/uL Metamyelocytes # (Man) 1.70 H (0) k/uL Myelocytes # (Manual) 1.36 H (0) k/uL Nucleated RBCs 1 H (0-0) /100 WBC Sodium (137-145) mmol/L Chloride 109 H (98-107) mmol/L Carbon Dioxide (22-30) mmol/L Creatinine 1.06 H (0.52-1.04) mg/dL Glucose 106 H (74-99) mg/dL Calcium 7.9 L (8.4-10.2) mg/dL AST 37 H (14-36) U/L ALT 55 H (9-52) U/L Alkaline Phosphatase (38-126) U/L Total Protein 5.0 L (6.3-8.2) g/dL Albumin 2.6 L (3.5-5.0) g/dL Urine Appearance (Clear) Urine Protein (Negative) Urine Ketones (Negative) Urine Bilirubin (Negative) Ur Leukocyte Esterase (Negative) Urine WBC (0-5) /hpf Urine Bacteria (None) /hpf Hyaline Casts (0-2) /lpf Urine Mucus (None) /hpf Chest x-ray: report reviewed Abdominal x-ray: report reviewed Assessment and Plan Plan: Leimyosarcoma: - Status Post Chemotherapy - Treatment hold until resolution of hospitalization problems - Will add Emend to future chemotherapy to assist with delayed nausea and vomiting Perisitent nausea and vomiting post treatment chemotherapy - Antiemetics - IV Hydration - Bowel Rest - Increased antimetics with future treatments Anemia: Secondary to chemotherapy Diarrhea: - Stool Studies Abdominal Gas pain: - Thong I have completed the full history and physical of this patient and developed the complete impression and plan, Agree with Kenia MONTERO, dictated as a scribe
[2019-01-20] MEDS: DICYCLOMINE 20 MG TAB PO SCH ×2 (18:01→20:51)
[2019-01-20] MEDS: LEVOTHYROXINE 100 MCG TAB PO SCH (20:51)
--- NOTE | 2019-01-20 21:32 | P.PN ---
Progress Note - Text Progress Note Date: 01/20/19 Presenting complaint: Nausea vomiting diarrhea Interval history: Patient status post total is abdominal hysterectomy, left salpingectomy right nephrectomy and salpingectomy with high-grade gliomyosarcoma associated with the right fallopian tube. She's been getting chemotherapy. That was about a week ago. Presented with nausea vomiting diarrhea some abdominal discomfort. Not stopping. Also elevated white count. [place] to be from Neulasta. Given IV fluids. Today-feeling better. Did tolerate some clear liquids. No more diarrhea. No abdominal pain. Some nausea. No fever no chills. Review of systems: Was done for constitutional, cardiovascular, GI, pulmonary. relevant finding as above Active Medications Acetaminophen (Tylenol Tab) 650 mg PO Q6HR PRN PRN Reason: Mild Pain or Fever > 100.5 Calcium Carbonate/Glycine (Tums) 500 mg PO QID PRN PRN Reason: Heartburn Dicyclomine HCl (Bentyl) 20 mg PO QID [facility] Last Admin: 01/20/19 20:51 Dose: 20 mg Documented by: Heparin Sodium (Porcine) (Heparin) 5,000 unit SQ Q8HR [facility] Last Admin: 01/20/19 17:19 Dose: 5,000 unit Documented by: Sodium Chloride (Saline 0.9%) 1,000 mls @ 150 mls/hr IV .Q6H40M [facility] Last Admin: 01/20/19 17:19 Dose: 150 mls/hr Documented by: Ibuprofen (Motrin) 400 mg PO Q6HR PRN PRN Reason: Mild Pain or Fever > 100.5 Last Admin: 01/20/19 10:57 Dose: 400 mg Documented by: Ketorolac Tromethamine (Toradol) 30 mg IVP Q6HR PRN PRN Reason: Moderate Pain Stop: 01/24/19 21:27 Levothyroxine Sodium (Synthroid) 200 mcg PO HS [facility] Last Admin: 01/20/19 20:51 Dose: 200 mcg Documented by: Lisinopril (Zestril) 20 mg PO QAM [facility] Last Admin: 01/20/19 07:47 Dose: 20 mg Documented by: Morphine Sulfate (Morphine Sulfate (Inj)) 4 mg IV Q4HR PRN PRN Reason: Severe Pain Naloxone HCl (Narcan) 0.2 mg IV Q2M PRN PRN Reason: Opioid Reversal Ondansetron HCl (Zofran) 4 mg IVP Q8HR PRN PRN Reason: Nausea And Vomiting Last Admin: 01/20/19 07:46 Dose: 4 mg Documented by: Pantoprazole Sodium (Protonix) 40 mg PO AC-BID [facility] Last Admin: 01/20/19 18:01 Dose: 40 mg Documented by: Simethicone (Mylicon Chew) 80 mg PO QID PRN PRN Reason: Abdominal Distention On examination: VITAL SIGNS: 98.4, 89, 16, 11 GENERAL APPEARANCE: Average build. Lying in bed, not in distress. HEENT: Normal external appearance of nose and ear. Oral cavity dry EYES: Pupils equal. Conjunctiva normal. NECK: JVD not raised. Mass not palpable. RESPIRATORY: Respiratory effort normal. Lungs clear to auscultation. CARDIOVASCULAR: First and second sounds normal. No edema. ABDOMEN: Soft. Liver and spleen not palpable. No tenderness. No mass palpable. PSYCHIATRY: Alert and oriented x3. Mood and affect normal. INVESTIGATIONS, reviewed in the clinical context: White count 33.9, hemoglobin 8.3, platelets 79, potassium 3.6, creatinine 1.06 Assessment: -Acute severe nausea vomiting diarrhea, as a side effect of chemotherapy -Leukocytosis likely from Neulasta possibly from volume contraction -Morbid obesity BMI 40.4 -Hypoalbuminemia-an acute phase reactant -Essential hypertension -Hypothyroid -leomyosarcoma, the fallopian tube status post genitourinary surgery and being treated with chemotherapy -Bicytopenia secondary to chemotherapy -Dehydration with elevated creatinine Plan: Patient had been on clear liquids tolerated the same. Advance to full liquids tonight. If tolerated was advanced to soft blood in the morning. Encouraged to be out of bed. Care was discussed with the patient. Repeat labs in the morning.
[2019-01-21] MEDS: LISINOPRIL 20 MG TAB PO SCH (07:48)
[2019-01-21] MEDS: HEPARIN SODIUM,PORCINE 5,000 UNIT/ML 1 ML VIAL SQ SCH ×3 (07:51→23:48)
[2019-01-21] MEDS: DICYCLOMINE 20 MG TAB PO SCH ×4 (07:51→21:21)
[2019-01-21] MEDS: PANTOPRAZOLE 40 MG TABLET PO SCH ×2 (07:51→17:35)
[2019-01-21 08:24] LABS: Anisocytosis Moderate; HCT 28.7 % (34.0-46.0); HGB 9.3 gm/dL (11.4-16.0); Hypochromasia Moderate; MCH 29.2 pg (25.0-35.0); MCHC 32.4 g/dL (31.0-37.0); Macrocytosis Slight; Platelet Count 118 k/uL (150-450); RBC 3.19 m/uL (3.80-5.40); RDW 23.1 % (11.5-15.5)
[2019-01-21 08:28] LABS: MCV 90.1 fL (80.0-100.0)
[2019-01-21 08:29] LABS: Calcium 7.8 mg/dL (8.4-10.2); Potassium 3.5 mmol/L (3.5-5.1)
[2019-01-21 10:28] LABS: Band Neutrophils % 3 %; Lymphocytes # (M) 3.73 k/uL (1.0-4.8); Metamyelocytes # (M) 1.02 k/uL (0); Metamyelocytes % 3 %; Monocytes # (M) 0.68 k/uL (0-1.0); Myelocytes # (M) 1.36 k/uL (0); Myelocytes % 4 %; Neutrophils % (M) 79 %; Nucleated Red Blood Cells 1 /100 WBC (0-0); Total Cells Counted 200; WBC 33.9 k/uL (3.8-10.6)
[2019-01-21 10:29] LABS: Polychromasia Present
[2019-01-21] MEDS: SODIUM CHLORIDE 0.9% 1,000 ML IV SCH ×3 (12:37→23:48)
[2019-01-21] MEDS: IBUPROFEN 400 MG TAB PO PRN (17:43)
[2019-01-21] MEDS: ONDANSETRON 4 MG/2 ML VIAL IVP PRN (17:43)
[2019-01-21] MEDS: CHOLESTYRAMINE (WITH SUGAR) 4 GM PACKET PO SCH (17:58)
[2019-01-21] MEDS: LEVOTHYROXINE 100 MCG TAB PO SCH (21:20)
--- NOTE | 2019-01-21 23:24 | P.PN ---
Progress Note - Text Progress Note Date: 01/21/19 Presenting complaint: Nausea vomiting diarrhea Interval history: Patient status post total is abdominal hysterectomy, left salpingectomy right nephrectomy and salpingectomy with high-grade gliomyosarcoma associated with the right fallopian tube. She's been getting chemotherapy. That was about a week ago. Presented with nausea vomiting diarrhea some abdominal discomfort. Not stopping. Also elevated white count. [place] to be from Neulasta. Given IV fluids. Today-continues to feel better. Nausea much improved. No diarrhea. Feels a bit tired. Did tolerate a full liquid this afternoon. Has been out of bed. Review of systems: Was done for constitutional, cardiovascular, GI, pulmonary. relevant finding as above Active Medications Acetaminophen (Tylenol Tab) 650 mg PO Q6HR PRN PRN Reason: Mild Pain or Fever > 100.5 Calcium Carbonate/Glycine (Tums) 500 mg PO QID PRN PRN Reason: Heartburn Cholestyramine Resin (Questran) 4 gm PO BID@1000,1800 [facility] Last Admin: 01/21/19 17:58 Dose: 4 gm Documented by: Dicyclomine HCl (Bentyl) 20 mg PO QID [facility] Last Admin: 01/21/19 21:21 Dose: 20 mg Documented by: Heparin Sodium (Porcine) (Heparin) 5,000 unit SQ Q8HR [facility] Last Admin: 01/21/19 17:34 Dose: 5,000 unit Documented by: Sodium Chloride (Saline 0.9%) 1,000 mls @ 150 mls/hr IV .Q6H40M [facility] Last Admin: 01/21/19 17:36 Dose: 150 mls/hr Documented by: Ibuprofen (Motrin) 400 mg PO Q6HR PRN PRN Reason: Mild Pain or Fever > 100.5 Last Admin: 01/21/19 17:43 Dose: 400 mg Documented by: Ketorolac Tromethamine (Toradol) 30 mg IVP Q6HR PRN PRN Reason: Moderate Pain Stop: 01/24/19 21:27 Levothyroxine Sodium (Synthroid) 200 mcg PO HS [facility] Last Admin: 01/21/19 21:20 Dose: 200 mcg Documented by: Lisinopril (Zestril) 20 mg PO QAM [facility] Last Admin: 01/21/19 07:48 Dose: Not Given Documented by: Morphine Sulfate (Morphine Sulfate (Inj)) 4 mg IV Q4HR PRN PRN Reason: Severe Pain Naloxone HCl (Narcan) 0.2 mg IV Q2M PRN PRN Reason: Opioid Reversal Ondansetron HCl (Zofran) 4 mg IVP Q8HR PRN PRN Reason: Nausea And Vomiting Last Admin: 01/21/19 17:43 Dose: 4 mg Documented by: Pantoprazole Sodium (Protonix) 40 mg PO AC-BID [facility] Last Admin: 01/21/19 17:35 Dose: 40 mg Documented by: Simethicone (Mylicon Chew) 80 mg PO QID PRN PRN Reason: Abdominal Distention On examination: VITAL SIGNS: 98.6, 90, 18, 11 6/69, 100% room air GENERAL APPEARANCE: Laying in bed, looking more comfortable. HEENT: Normal external appearance of nose and ear. Mucous membranes moist EYES: Pupils equal. Conjunctiva normal. NECK: JVD not raised. Mass not palpable. RESPIRATORY: Respiratory effort normal. Lungs clear to auscultation. CARDIOVASCULAR: First and second sounds normal. No edema. ABDOMEN: Soft. Liver and spleen not palpable. No tenderness. No mass palpable. PSYCHIATRY: Alert and oriented x3. Mood and affect normal. INVESTIGATIONS, reviewed in the clinical context: White count 33.9 hemoglobin 9.3 platelets 118 Potassium 3.5 creatinine 0.96 Assessment: -Acute severe nausea vomiting diarrhea, as a side effect of chemotherapy, improving -Leukocytosis likely from Neulasta possibly from volume contraction -Morbid obesity BMI 40.4 -Hypoalbuminemia-an acute phase reactant -Essential hypertension -Hypothyroid -leomyosarcoma, the fallopian tube status post genitourinary surgery and being treated with chemotherapy -Bicytopenia secondary to chemotherapy -Dehydration with elevated creatinine Plan: Overall clinically doing much better. Care was discussed with the patient. Encouraged template. Hopefully can be discharged tomorrow.
[2019-01-22 05:30] VITALS: RESP 18
[2019-01-22] MEDS: SODIUM CHLORIDE 0.9% 1,000 ML IV SCH (06:10)
[2019-01-22 08:00] LABS: Calcium 7.7 mg/dL (8.4-10.2); Potassium 3.3 mmol/L (3.5-5.1)
[2019-01-22 08:03] LABS: Anisocytosis Moderate; Hypochromasia Moderate; MCHC 33.3 g/dL (31.0-37.0); MCV 87.2 fL (80.0-100.0); Mean Platelet Volume 6.1; Microcytosis Slight; Platelet Count 132 k/uL (150-450)
[2019-01-22] MEDS: HEPARIN SODIUM,PORCINE 5,000 UNIT/ML 1 ML VIAL SQ SCH (08:27)
[2019-01-22] MEDS: DICYCLOMINE 20 MG TAB PO SCH ×2 (08:27→12:51)
[2019-01-22] MEDS: LISINOPRIL 20 MG TAB PO SCH (08:27)
[2019-01-22] MEDS: PANTOPRAZOLE 40 MG TABLET PO SCH (08:27)
[2019-01-22 08:54] LABS: Band Neutrophils % 8 %; Metamyelocytes % 2 %; Myelocytes % 4 %; Neutrophils % (M) 71 %; Nucleated Red Blood Cells 1 /100 WBC (0-0); Total Cells Counted 200
[2019-01-22 08:55] LABS: Lymphocytes # (M) 3.43 k/uL (1.0-4.8); Metamyelocytes # (M) 0.62 k/uL (0); Monocytes # (M) 1.56 k/uL (0-1.0); Myelocytes # (M) 1.25 k/uL (0); WBC 31.2 k/uL (3.8-10.6)
[2019-01-22 08:56] LABS: Polychromasia Present; Toxic Granulation Present
[2019-01-22] MEDS ORDERED: POTASSIUM CHLORIDE ER 20 MEQ TAB.ER PO STA (10:43)
[2019-01-22] MEDS: CHOLESTYRAMINE (WITH SUGAR) 4 GM PACKET PO SCH (11:11)
[2019-01-22 11:56] VITALS: BP 125/72; PULSE 78; TEMP 97.5
--- NOTE | 2019-01-24 22:51 | P.DS ---
Providers Date of admission: 01/19/19 21:36 Expected date of discharge: 01/22/19 Attending physician: Vamshi Cloud Consults: 01/19/19 21:26 Consult Physician Stat Consulting Provider: Rolo Booker Consult Reason/Comments: Leukocytosis, post chemo, N/V Do you want consulting provider notified?: Yes Primary care physician: Deja Bo Hospital Course: Presenting complaint: Nausea vomiting diarrhea Interval history: Patient status post total is abdominal hysterectomy, left salpingectomy right nephrectomy and salpingectomy with high-grade gliomyosarcoma associated with the right fallopian tube. She's been getting chemotherapy. That was about a week ago. Presented with nausea vomiting diarrhea some abdominal discomfort. Not stopping. Also elevated white count. [place] to be from Neulasta. Given IV fluids. Patient was managed conservatively. Did tolerate fluids. Diet was slowly advanced. No evidence of infection. Doing much better. Tolerating a soft bland diet before discharge. Elevated white count is felt to be from Neulasta. Today-care was discussed with the patient. Questions were answered. Also discussed Dr. Booker. Okay to discharge. Consultation: Dr. Booker from oncology On examination: VITAL SIGNS: 97.5, 78, 18, 125/72, 98% room air GENERAL APPEARANCE: Sitting up, comfortable. HEENT: Normal external appearance of nose and ear. Mucous membranes moist EYES: Pupils equal. Conjunctiva normal. NECK: JVD not raised. Mass not palpable. RESPIRATORY: Respiratory effort normal. Lungs clear to auscultation. CARDIOVASCULAR: First and second sounds normal. No edema. ABDOMEN: Soft. Liver and spleen not palpable. No tenderness. No mass palpable. PSYCHIATRY: Alert and oriented x3. Mood and affect normal. INVESTIGATIONS, reviewed in the clinical context: White count 31.2 hemoglobin 9 platelets 132 Potassium 3.5 creatinine 0.96 Discharge diagnosis: -Acute severe nausea vomiting diarrhea, as a side effect of chemotherapy, -Leukocytosis likely from Neulasta -Morbid obesity BMI 40.4 -Hypoalbuminemia-an acute phase reactant -Essential hypertension -Hypothyroid -leomyosarcoma, the fallopian tube status post genitourinary surgery and being treated with chemotherapy -Bicytopenia secondary to chemotherapy -Dehydration with elevated creatinine, resolved Disposition: Home Patient Condition at Discharge: Stable Plan - Discharge Summary Discharge Rx Participant: Yes New Discharge Prescriptions: Continue Levothyroxine Sodium [Synthroid] 200 mcg PO HS Lisinopril 20 mg PO QAM Dexamethasone 4 mg PO WEEKLY Prochlorperazine [Compazine] 5 mg PO Q6H PRN PRN Reason: Nausea No Action DOCEtaxel [Taxotere] 160 mg IV Q14D Gemcitabine HCl [Gemzar] 1,900 mg IV Q21D Discharge Medication List Levothyroxine Sodium [Synthroid] 200 mcg PO HS 08/01/18 [History] Lisinopril 20 mg PO QAM 08/01/18 [History] DOCEtaxel [Taxotere] 160 mg IV Q14D 11/12/18 [History] Dexamethasone 4 mg PO WEEKLY 11/12/18 [History] Gemcitabine HCl [Gemzar] 1,900 mg IV Q21D 11/12/18 [History] Prochlorperazine [Compazine] 5 mg PO Q6H PRN 11/12/18 [History] Follow up Appointment(s)/Referral(s): Rolo Booker MD [STAFF PHYSICIAN] - 01/29/19 10:15 am (Appt with Dr. Booker is at [facility] office) Deja Bo MD [Primary Care Provider] - 02/02/19 9:00 am Patient Instructions/Handouts: Dehydration (DC), Leukocytosis (DC), Chemo Induced Nausea and Vomiting (DC) Activity/Diet/Wound Care/Special Instructions: CBC (blood work)- with Dr. Booker Discharge Disposition: HOME SELF-CARE
== END 2019-01-22 15:34 | disposition home or self-care (01) ==
LOC: EC 16:28 → 3NMEDONC 21:36
PROVIDERS: ADMIT Hospitalist; ATTEND Hospitalist
DX: R11.2 Nausea with vomiting, unspecified (principal); R19.7 Diarrhea, unspecified; T45.1X5A Adverse effect of antineoplastic and immunosuppressive drugs, initial encounter; D72.829 Elevated white blood cell count, unspecified; E87.2 Acidosis; C50.912 Malignant neoplasm of unspecified site of left female breast; E86.0 Dehydration; E66.01 Morbid (severe) obesity due to excess calories; Z68.41 Body mass index [BMI] 40.0-44.9, adult; E88.09 Other disorders of plasma-protein metabolism, not elsewhere classified; D68.62 Lupus anticoagulant syndrome; D69.6 Thrombocytopenia, unspecified; D64.9 Anemia, unspecified; E89.0 Postprocedural hypothyroidism; I10 Essential (primary) hypertension; Z96.21 Cochlear implant status; Z97.4 Presence of external hearing-aid; Z79.890 Hormone replacement therapy; Z85.89 Personal history of malignant neoplasm of other organs and systems; Z79.899 Other long term (current) drug therapy; Z79.52 Long term (current) use of systemic steroids; Z91.041 Radiographic dye allergy status; Z88.2 Allergy status to sulfonamides; Z88.8 Allergy status to other drugs, medicaments and biological substances; Z91.048 Other nonmedicinal substance allergy status; Z82.49 Family history of ischemic heart disease and other diseases of the circulatory system; Z90.710 Acquired absence of both cervix and uterus; Z90.5 Acquired absence of kidney; Z90.721 Acquired absence of ovaries, unilateral; Z90.79 Acquired absence of other genital organ(s)
CPT/HCPCS: 96376 ×2; 96361 ×4; 96372 ×3; 96375 ×2; 96374; 99285; 36415; 93005; 80053 ×2; 80048 ×2; 82150; 83605; 83690; 85025 ×4; 81001; 87040; 87324; 87045; 87046; 71046; 74018; G0378 ×4; J1644 ×3; J2405 ×3; J1642; C9113

== ENCOUNTER → 2020-06-13 | Outpatient (CLI) | payer OTHER ==
[2020-06-13 13:55] LABS: African American GFR (CKD) >90 (>60 ml/min/1.73 sqM); Blood Urea Nitrogen 18 mg/dL (7-17); Non-African American GFR(CKD) >90 (>60 ml/min/1.73 sqM)
--- NOTE | 2020-06-13 16:10 | CT ---
EXAMINATION TYPE: CT ChestAbdPelvis w con DATE OF EXAM: 06/13/2020 COMPARISON: None HISTORY: 45-year-old female Z85.44, Follow up for uterine cancer. TECHNIQUE: Contiguous axial scanning of the chest, abdomen, and pelvis performed with IV Contrast, pa tient injected with 100ml mL of Isovue 300. Delayed images through the kidneys were obtained. Coronal /sagittal reconstructions performed. CT DLP: 2159.5 mGycm Automated exposure control for dose reduction was used. FINDINGS: CHEST: Heart normal size without pericardial effusion. Aorta normal caliber with bovine configuration to the aortic arch. No thoracic lymphadenopathy by CT size criteria. 5 mm right lower lung pulmonary nodule, axial image 27. 7 mm peripheral left basilar pulmonary nodule, axial image 41. No consolidation or pleural effusion. ABDOMEN: The liver is enlarged measuring 22.2 cm with marked low attenuation. Some fatty sparing is present al uri the anterior-inferior margin of the right liver lobe. Portal venous system is patent. No biliary ductal dilatation. Gallbladder, adrenal glands, kidneys, and pancreas appear within normal limits. Spleen borderline enlarged at 13.8 cm measured on axial series. No dilated small bowel, free fluid, or free air. No mesenteric or retroperitoneal lymphadenopathy fina ntified. Oral contrast progressed to the transverse colon. Normal appendix. Mild to moderate stool burden. No pericolonic inflammatory change. PELVIS: Questionable soft tissue nodularity along the anterior wall of the bladder, axial image 109 and sagit laverne image 83. Difficult to exclude increased density from streak artifact. Attention to this area on follow-up. No abnormal fluid collection in the pelvis or pelvic lymphadenopathy. Uterus surgically absent. Neither ovary visualized. A few tiny pelvic phleboliths. BONES: Transitional lumbosacral segment with a sacralized L5 and bilateral assimilation joints. No osseous d estructive process. IMPRESSION: 1. A COUPLE PULMONARY NODULES MEASURING UP TO 7 MM. IF NO OUTSIDE PRIOR IS AVAILABLE FOR COMPARISON, 3-6 MON[address] FOLLOW-UP CT RECOMMENDED TO REASSESS. 2. QUESTIONABLE SOFT TISSUE NODULARITY ALONG THE ANTERIOR WALL OF THE BLADDER. EITHER FOCAL STREAK AR TIFACT OR ABNORMAL MURAL-BASED THICKENING. THE FORMER IS SOMEWHAT FAVORED. CORRELATE WITH URINALYSIS AND URINE CYTOLOGY. ATTENTION TO THIS AREA ON FOLLOW-UP. 3. 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
== END | disposition home or self-care (01) ==
LOC: RADCTMAIN 13:07
PROVIDERS: ATTEND Obstetrics & Gynecology
DX: Z08 Encounter for follow-up examination after completed treatment for malignant neoplasm (principal); K76.0 Fatty (change of) liver, not elsewhere classified; R91.8 Other nonspecific abnormal finding of lung field; Z85.44 Personal history of malignant neoplasm of other female genital organs
CPT/HCPCS: 82565; 84520; 71260; 74177; 36415; Q9967

== ENCOUNTER → 2020-09-13 | Outpatient (CLI) | payer OTHER ==
[2020-09-13 10:01] LABS: African American GFR (CKD) >90 (>60 ml/min/1.73 sqM); Blood Urea Nitrogen 15 mg/dL (7-17); Non-African American GFR(CKD) >90 (>60 ml/min/1.73 sqM)
--- NOTE | 2020-09-13 10:55 | CT ---
EXAMINATION TYPE: CT ChestAbdPelvis w con DATE OF EXAM: 09/13/2020 COMPARISON: 06/13/2020 HISTORY: History of breast and uterine cancer. CT DLP: 2099.9 mGycm CONTRAST: CT scan of the chest, abdomen and pelvis is performed with Oral Contrast and with IV Contrast, patien t injected with 100 mL of Isovue 300. CT Chest: LUNGS: The lungs are clear and free of infiltrate or atelectasis stable 6.5 mm pulmonary nodule left lower lobe. Stable 5 mm pulmonary nodule along the minor fissure. No new nodules appreciated. No pleu ral effusion or CT evidence of interstitial lung disease. MEDIASTINUM: Thoracic aorta is of normal caliber. The heart is not enlarged. No evidence for media stinal mass or adenopathy. HILAR STRUCTURES: No evidence for mass. No hilar adenopathy is appreciated. OTHER: No significant abnormality. CONTRAST CT ABDOMEN AND PELVIS FINDINGS: LIVER/GB: No calcified gallstones. Hepatomegaly with severe hepatic steatosis redemonstrated. No sp nito occupying hepatic lesion. Biliary tree is of normal caliber. PANCREAS: No inflammation. No distinct mass. SPLEEN: No splenic enlargement. No lesion seen. ADRENALS: No nodule. No thickening. KIDNEYS/BLADDER: No hydronephrosis. No nephrolithiasis. No distinct renal mass. The urinary bladde r is incompletely distended. Wall thickening is difficult to exclude. BOWEL: Normal appendix. Normal bowel caliber. No inflammation. GENITAL ORGANS: Hysterectomy changes without evidence for recurrent or residual mass. LYMPH NODES: No greater than 1cm abdominal or pelvic lymph nodes are appreciated. AORTA: No significant abnormality. OSSEOUS STRUCTURES: No significant abnormality is seen. OTHER: No significant additional abnormality is seen. IMPRESSION: 1. The urinary bladder is incompletely distended. Wall thickening is difficult to exclude. 2. Hepatomegaly with severe hepatic steatosis. 3. Stable pulmonary nodules. Continued follow-up at 6 6 months is advised.
== END | disposition home or self-care (01) ==
LOC: RADCTMAIN 09:18
PROVIDERS: ATTEND Obstetrics & Gynecology
DX: R16.0 Hepatomegaly, not elsewhere classified (principal); K76.0 Fatty (change of) liver, not elsewhere classified; Z08 Encounter for follow-up examination after completed treatment for malignant neoplasm; Z85.44 Personal history of malignant neoplasm of other female genital organs
CPT/HCPCS: 82565; 84520; 71260; 74177; 36415; Q9967

== ENCOUNTER → 2021-08-03 | Outpatient (CLI) | payer OTHER ==
[2021-08-03 17:44] LABS: African American GFR (CKD) >90 (>60 ml/min/1.73 sqM); Blood Urea Nitrogen 22 mg/dL (7-17); Non-African American GFR(CKD) >90 (>60 ml/min/1.73 sqM)
--- NOTE | 2021-08-03 23:09 | CT ---
EXAMINATION TYPE: CT ChestAbdPelvis w con CT DLP: 2103.50 mGycm, Automated exposure control for dose reduction was used. DATE OF EXAM: 08/03/2021 6:16 PM COMPARISON: Chest abdomen pelvis 09/08/2020. 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 Two-dimensional coronal and sagittal reconstructions were obtained. Findings: CHEST: LUNGS/ PLEURA: Pulmonary nodules are again seen throughout the lungs which have increased in size fro m prior. Paper Box Maker example includes: -Right upper lobe pulmonary nodule measuring 5 mm on series 5 image 21 previously measuring 3 mm. -Right lower lobe pulmonary nodule measuring 5 mm on series 5 image 24 previously measuring 3 mm. -New right lower lobe nodule measuring 2 mm image 25. -Right lower lobe nodules on 33 and 34 which are minimally larger than prior. -Other pulmonary nodules including image 27 measuring 7 mm previously 3 mm. -Left lower lobe pulmonary nodule within the left lower lobe measures 11 mm previously 7 mm on image 39. No evidence of pleural effusion, focal consolidation or pneumothorax. AIRWAY: Patent and unremarkable.. HEART: Size within normal limits. . MEDIASTINUM: No gross evidence of adenopathy. VASCULATURE: No aortic aneurysm. MUSCULOSKELETAL: No acute osseous abnormalities. SOFT TISSUES/LYMPH NODES: Unremarkable. LOWER NECK: No significant findings. ABDOMEN: ABDOMEN LIVER: Diffuse low-attenuation to the liver parenchyma. GALLBLADDER AND BILE DUCTS: Unremarkable. PANCREAS: Unremarkable. SPLEEN: Unremarkable. ADRENAL GLANDS: Unremarkable. KIDNEYS AND URETERS: No evidence of hydronephrosis or renal calculus. The ureters are unremarkable. PELVIS BLADDER: Unremarkable REPRODUCTIVE: Unremarkable. ABDOMEN & PELVIS STOMACH AND BOWEL: Moderate amount of stool seen throughout the colon. Fecaloma seen within the rectu m measuring up to 59 mm. No evidence of bowel obstruction. PERITONEUM: No evidence of pneumoperitoneum or free fluid. VASCULATURE: No evidence of aortic aneurysm. Scattered atherosclerosis of the arterial vasculature. MUSCULOSKELETAL: No acute osseous abnormalities. Mild multilevel disc degeneration changes. No eviden ce for suspicious osseous lesion. LYMPH NODES: No gross evidence for lymphadenopathy. SOFT TISSUE/ABDOMINAL WALL: Post surgical changes anterior abdominal wall. IMPRESSION: 1. Increase in size of scattered pulmonary nodules with at least one new pulmonary nodule concerning for worsening metastatic disease. 2. Hepatic steatosis
== END | disposition home or self-care (01) ==
LOC: RADCTMAIN 16:43
PROVIDERS: ATTEND Otolaryngology
DX: C54.3 Malignant neoplasm of fundus uteri (principal)
CPT/HCPCS: 82565; 84520; 71260; 74177; 36415; Q9967

== ENCOUNTER → 2021-08-25 | Outpatient (CLI) | payer OTHER ==
--- NOTE | 2021-08-25 12:29 | PE ---
Nuclear medicine PET/CT HISTORY: Solitary pulmonary nodule, initial, history of breast carcinoma and leiomyosarcoma Patient received 9.4 mCi F-18 FDG intravenously and delayed scanning was performed from the skull bas e thorugh the legs. A localization and attenuation correction CT scan was performed. Correlation to CT scan 08/03/2021 chest abdomen and pelvis Chest and neck: There is no suspicious uptake, no cervical or supraclavicular adenopathy, there is no mediastinal, axillary, or hilar adenopathy. Patient's known pulmonary nodules are likely too small t o show abnormal radio pharmaceutical uptake. There is no pleural or pericardial effusion. ABDOMEN: There is no evident liver mass or suspicious uptake. No retroperitoneal adenopathy or ascite s. No pelvic adenopathy. Osseous structures show no suspicious uptake. Lower extremities show no suspicious uptake impression: No associated uptake present possibly due to the small size of patient's pulmonary nodule s. The pulmonary nodules may be seen as showing differences in size due to technique of the exam and the small size of the nodules, additional follow-up is recommended.
== END | disposition home or self-care (01) ==
LOC: RADPETMAIN 07:23
PROVIDERS: ATTEND Obstetrics & Gynecology
DX: C49.9 Malignant neoplasm of connective and soft tissue, unspecified (principal)
CPT/HCPCS: 78816; A9552

== ENCOUNTER → 2022-04-20 | Outpatient (CLI) | payer OTHER ==
--- NOTE | 2022-04-22 10:04 | PE ---
EXAMINATION TYPE: PET CT fusion skull to thigh DATE OF EXAM: 04/20/2022 CLINICAL INDICATION:Female, 46 years old with history of Z08; TECHNIQUE: Following the intravenous administration of 12.48 mCi of F-18 FDG, whole body images are performed from the skull base to the midthigh. Images are reviewed on the computer in the coronal, axial, and sagittal planes. Reconstructed rotating images are created on independent workstation and reviewed on the computer. A non-contrast CT is performed in conjunction with the PET scan. Glucose level 134 mg/dL COMPARISON: CT 08/03/2021, PET/CT 08/25/2021, FINDINGS: Mediastinal SUV mean is 1.4. Hepatic parenchyma SUV mean is 2.2. SKULL BASE AND NECK: No suspicious radiotracer activity. CHEST, MEDIASTINUM, AND HILAR REGION: Scattered pulmonary nodules throughout the lungs examples include: * Left lower lobe 8 mm, previously 7 mm. Image 116 image 3. * Left lower lobe superiorly 12 mm Max SUV 1.2, previously 9 mm. Image 108 series 3. * Left lingular 6 mm , previously 3 mm. image 104 image 3 * Right lower lobe lung 8 mm, previously 6 mm. Image 100 series 3 * Right lower lobe 6 mm, previously 3 mm. Image 108 series 3. * Right lower lobe anterior near the fissure 7 mm, previously 6 mm. Image 95 series 3 * Right upper lung 7 mm, previously 4 mm. Image 91 image 3 Additional other smaller nodular densities throughout the lungs. ABDOMEN AND PELVIS: No suspicious radiotracer activity. OSSEOUS STRUCTURES: No suspicious radiotracer activity. OTHER CT: Hepatic steatosis. IMPRESSION: 1. Scattered pulmonary nodules a majority of which are subcentimeter and below the sensitivity for F DG activity. The largest has FDG activity below background levels. Most all these have increased in s ize from prior on 08/25/2021. 2. No suspicious radiotracer activity identified on this exam however findings as described and #1.
== END | disposition home or self-care (01) ==
LOC: RADPETMAIN 06:29
PROVIDERS: ATTEND Obstetrics & Gynecology
DX: Z08 Encounter for follow-up examination after completed treatment for malignant neoplasm (principal); R91.8 Other nonspecific abnormal finding of lung field; Z85.44 Personal history of malignant neoplasm of other female genital organs
CPT/HCPCS: 78815; A9552

== ENCOUNTER → 2024-01-02 | Outpatient (CLI) | payer OTHER ==
--- NOTE | 2024-01-02 18:03 | PE ---
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 Images are reviewed on the computer in the coronal, axi al, and sagittal planes. Reconstructed rotating images are created on independent workstation and re viewed on the computer. A non-contrast CT is performed in conjunction with the PET scan. Glucose le tiffani 149 mg/dL CT DLP: 816.30 mGycm, Automated exposure control for dose reduction was used. COMPARISON: CT 08/03/2021, 09/13/2020, 06/13/2020, PET/CT 04/20/2022, 08/25/2021, MRI: None FINDINGS: Mediastinal SUV mean is 2.65. Hepatic parenchyma SUV mean is 2.77. SKULL BASE AND NECK: No suspicious radiotracer activity. CHEST, MEDIASTINUM, AND HILAR REGION: Scattered pulmonary nodules are redemonstrated and overall increased in size from prior examination. No new definitive nodules identified. Examples include a left lower lobe 1.7 cm nodule, previously measured 1.2 cm. Medial right lower lobe 1.2 cm pulmonary nodule, previously 0.8 cm. Right lower lobe 1.1 cm pulmonary nodule, previously 0.7 cm. None of these demonstrate radio tracer uptake above background. ABDOMEN AND PELVIS: No suspicious radiotracer activity. Physiologic uptake within the bowel. MUSCULOSKELETAL STRUCTURES: There are a few soft tissue lesions are identified within the left latera l hip abutting the skin surface measuring 1.7 cm, right lateral hip measuring 1.1 cm, left anterior a bdominal wall measuring 0.9 cm, and right gluteal tissues measuring 1.5 cm. These demonstrate a maxim um SUV of 3.8, 1.8, 2.0, and 2.8 respectively. No other suspicious radiotracer uptake. OTHER CT: Mildly enlarged heart. Marked hepatic steatosis. Small fat filled umbilical hernia. Posthys terectomy. IMPRESSION: 1. Increased size of scattered pulmonary nodules from prior PET/CT. Majority of these are subcentime ter and below the sensitivity for PET CT. The largest has FDG activity below background again. These are concerning for worsening metastatic disease. 2. Few small subcutaneous lesions with radiotracer around background or below. Favored to represent infectious/inflammatory cysts with malignancy is thought to be less likely. 3. No other suspicious radiotracer activity identified.
== END | disposition home or self-care (01) ==
LOC: RADPETMAIN 15:10
PROVIDERS: ATTEND Obstetrics & Gynecology
DX: R91.8 Other nonspecific abnormal finding of lung field (principal); Z85.44 Personal history of malignant neoplasm of other female genital organs
CPT/HCPCS: 78815; A9552